=== PATIENT | male | born 2000 | race Caucasian/White ===

== ENCOUNTER 2022-06-27 17:25 | Emergency (ER) | payer OTHER, SELFPAY ==
[2022-06-27 17:30] VITALS: BP 129/87; PULSE 82; RESP 12; TEMP 36.7; O2SAT 98; BMI 18.5
[2022-06-27] MEDS: ACETAMINOPHEN SUSP 650 MG/20.3 ML UDC PO (17:39)
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
[2022-06-27] MEDS: KETOROLAC 30 MG/ML VIAL 15 MG IM (19:01)
[2022-06-27] MEDS: ONDANSETRON 4 MG ODT SL (19:02)
[2022-06-27 19:11] VITALS: BP 122/80; PULSE 80; RESP 14; O2SAT 98
== END 2022-06-27 19:12 | disposition home or self-care (01) ==
PROVIDERS: Emergency Provider Nurse Practitioner Critical Care Medicine; PCP Student in an Organized Health Care Education/Training Program; Referring Provider Student in an Organized Health Care Education/Training Program
DX: S06.0X0A Concussion without loss of consciousness, initial encounter (principal); W22.8XXA Striking against or struck by other objects, initial encounter; Y92.813 Airplane as the place of occurrence of the external cause
CPT/HCPCS: 70450; 72125; 96372; 99283; 99284; J1885

== ENCOUNTER 2022-12-16 22:06 | Emergency (ER) | payer OTHER, SELFPAY ==
[2022-12-16 22:11] VITALS: BP 158/89; PULSE 82; RESP 16; TEMP 36.7; O2SAT 99; BMI 18.4
[2022-12-16 22:39] LABS: Add Manual Diff / Slide Review NO; Basophils Absolute Auto 100 /uL (0-100); Basophils Percent Auto 0.7 % (0-2); Eosinophils Absolute Auto 200 /uL (0-450); Eosinophils Percent Auto 2.2 % (2-4); Hemoglobin 15.4 g/dL (13.5-17.5); Lymphocytes Absolute Auto 2600 /uL (1100-4500); Mean Corpuscular HGB Conc 35.1 % (30-36); Mean Corpuscular Hemoglobin 31.4 PG (26-34); Mean Corpuscular Volume 89.5 fL (80-100); Monocytes Absolute Auto 900 /uL (0-900); Neutrophils Absolute Auto 6100 /uL (1500-7000); Neutrophils Percent Auto 62.1 % (50-75); Platelet Count 265 X10^3/uL (150-400); Red Blood Cell Count 4.92 X10^6/uL (4.5-5.9); Red Cell Distribution Width 13.2 % (11.6-14.8); White Blood Cell Count 9.9 X10^3/uL (4.5-11.0)
[2022-12-16 22:47] LABS: Potassium 4.1 mmol/L (3.4-5.1)
[2022-12-16 22:48] LABS: Alanine Aminotransferase 24 IU/L (<50); Albumin 5.3 g/dL (3.5-5.0); Albumin Globulin Ratio 1.6 (1.0-2.8); Alkaline Phosphatase 104 U/L (38-126); Aspartate Aminotransferase 35 IU/L (17-59); BUN Creatinine Ratio 14.3 (6-22); Bilirubin Total 0.5 mg/dL (0.2-1.3); Blood Urea Nitrogen 12 mg/dL (9-20); Calcium 9.7 mg/dL (8.4-10.2); Carbon Dioxide 30 mmol/L (22-32); Chloride 99 mmol/L (98-107); Estimated Glomerular Filt Rate > 60 mL/min (>60); Globulin 3.3 g/dL (1.7-4.1); Glucose 101 mg/dL (70-100); Sodium 139 mmol/L (137-145); Total Protein 8.6 g/dL (6.3-8.2)
[2022-12-16 23:00] LABS: Troponin I < 0.012 ng/mL (0.01-0.034)
[2022-12-16 23:04] LABS: HEMOLYSIS 29 (0-50)
[2022-12-16 23:05] LABS: Procalcitonin < 0.03 ng/mL (<0.5)
[2022-12-16 23:12] LABS: COVID-19 CEPHEID 4-PLEX PCR Negative (Negative); Influenza A - CEPHEID Flu A NEGATIVE (NEGATIVE); Influenza B - CEPHEID Flu B NEGATIVE (NEGATIVE); Respiratory Syncytial Virus Negative (Negative)
[2022-12-17 00:35] VITALS: BP 123/66; PULSE 82; O2SAT 99
--- NOTE | 2022-12-17 00:48 | ED_ITS ---
HPI - Weakness General Chief complaint: Weakness Stated complaint: Bumps on neck 2wks, lightheaded, blurry vision Time Seen by Provider: 12/17/22 00:30 Source: patient and family Mode of arrival: Ambulatory History of Present Illness HPI Narrative: Patient is a 22-year-old male who presents with cervical lymphadenopathy. He reports it has been there for a couple of weeks he talked his PCM about it started him on amoxicillin. He is not had any fever chills sore throat ear pain headache neck pain or other infectious symptoms. He was put on amoxicillin for 1 week he thinks maybe it helped. Tonight he felt a lump on the right side of his neck again he got a little weak a little dizzy he did not pass out. He reports that he has been drinking lots of water he has no abdominal pain nausea vomiting painful frequent urination. He is not noted any other swelling or lymph nodes elsewhere in the body. He denies any weight loss Related Data Previous Rx's Medication Instructions Recorded acetaminophen 160 mg chewable 640 mg PO Q6H PRN fever or pain 06/27/22 tablet #60 tabs ibuprofen 100 mg chewable tablet 600 mg PO Q6-8H PRN fever or pain 06/27/22 #60 tabs ondansetron 4 mg disintegrating 4 mg PO Q8H PRN nausea and 06/27/22 tablet vomiting #10 tabs Allergies Allergy/AdvReac Type Severity Reaction Status Date / Time ketamine Allergy Intermediate Hives Verified 06/27/22 17:34 Review of Systems Review of Systems ROS Unobtainable: All systems reviewed & are unremarkable except as noted in HPI and below Patient History Social History Smoking Status: Never smoker Smoking Status: Never smoker alcohol intake frequency: other Substance Use Type: does not use Exam Initial Vital Signs Initial Vital Signs: Vital Signs Temperature 98.1 F 12/16/22 22:11 Pulse Rate 82 12/16/22 22:11 Respiratory Rate 16 12/16/22 22:11 Blood Pressure 158/89 H 12/16/22 22:11 Pulse Oximetry 99 12/16/22 22:11 Oxygen Delivery Method Room Air 12/16/22 22:11 GENERAL: Alert thin well-appearing 22-year-old male HEENT: Head atraumatic,EOMI, pupils reactive, face symmetric, moist mucous memb ranes EARS: Tympanic membranes visualized, no erythema or bulging, no hemotympanum PHARYNX: No erythema, no tonsillar exudate, right side lymph node very small 0.5 cm tender to touch non erythematous movable CARDIOVASCULAR: Regular rate and rhythm without murmurs, rubs or gallops. RESPIRATORY: Breath sounds equal bilaterally, no wheezes rales or rhonchi. ABDOMEN: Soft, nontender. Normoactive bowel sounds all 4 quadrants. No guarding or rebound. EXTREMITIES: Normal range of motion, no clubbing or edema. Neurovascularly intact NEUROLOGICAL: Alert and oriented x4.Normal gait and speech. SKIN: Warm, dry, no laceration, no petechiae, no rashes or lesions. Course Orders Ordered: ED Orders 12/16/22 22:23 Complete Blood Count AUTO DIFF Stat Comprehensive Metabolic Panel Stat Procalcitonin Stat Troponin I Stat 12/16/22 22:28 Covid-19 + FLU A/B + RSV - PCR Stat Vital Signs Vital signs: Vital Signs - 8 hr 12/16/22 22:11 12/17/22 00:35 Temperature 98.1 F Pulse Rate 82 82 Respiratory Rate 16 Blood Pressure 158/89 H 123/66 Pulse Oximetry 99 99 Oxygen Delivery Method Room Air MDM - Weakness Lab Data 12/16/22 22:23 12/16/22 22:23 Labs: Lab Results 12/16/22 12/16/22 12/16/22 Range/Units 22:23 22:23 22:28 WBC 9.9 (4.5-11.0) X10^3/uL RBC 4.92 (4.5-5.9) X10^6/uL Hgb 15.4 (13.5-17.5) g/dL Hct 44.0 (41-53) % MCV 89.5 (80-100) fL MCH 31.4 (26-34) PG MCHC 35.1 (30-36) % RDW 13.2 (11.6-14.8) % Plt Count 265 (150-400) X10^3/uL Neut % (Auto) 62.1 (50-75) % Lymph % (Auto) 26.0 (25-40) % Benzie % (Auto) 9.0 (3-14) % Eos % (Auto) 2.2 (2-4) % Baso % (Auto) 0.7 (0-2) % Neut # (Auto) 6100 (9031-4560) /uL Lymph # (Auto) 2600 (7193-6389) /uL Benzie # (Auto) 900 (0-900) /uL Eos # (Auto) 200 (0-450) /uL Baso # (Auto) 100 (0-100) /uL Sodium 139 (137-145) mmol/L Potassium 4.1 (3.4-5.1) mmol/L Chloride 99 (98-107) mmol/L Carbon Dioxide 30 (22-32) mmol/L BUN 12 (9-20) mg/dL Creatinine 0.84 (0.66-1.25) mg/dL Estimated GFR > 60 (>60) mL/min BUN/Creatinine Ratio 14.3 (6-22) Glucose 101 H (70-100) mg/dL Calcium 9.7 (8.4-10.2) mg/dL Total Bilirubin 0.5 (0.2-1.3) mg/dL AST 35 (17-59) IU/L ALT 24 (<50) IU/L Alkaline Phosphatase 104 (38-126) U/L Troponin I < 0.012 (0.01-0.034) ng/mL Total Protein 8.6 H (6.3-8.2) g/dL Albumin 5.3 H (3.5-5.0) g/dL Globulin 3.3 (1.7-4.1) g/dL Albumin/Globulin Ratio 1.6 (1.0-2.8) Procalcitonin < 0.03 (<0.5) ng/mL SARS-CoV-2 (PCR) Negative (Negative) Influenza A (RT-PCR) Flu a negative (NEGATIVE) Influenza B (RT-PCR) Flu b negative (NEGATIVE) RSV (PCR) Negative (Negative) ECG Data Interpretation: Normal sinus rhythm rate 87 PA interval 136 QRS [address] changes MDM Narrative Medical decision making narrative: Patient healthy 22-year-old male who presents with 1 lymph node on the right side of his neck it has been there for about 2 weeks he reports that it has not changed with amoxicillin. It is extremely small mildly tender to touch movable. Blood work is overall reassuring without leukocytosis or anemia no concern for leukemia or lymphoma. Probably infectious related he is not septic. Probably viral. However does not have symptoms now. Vitals are stable no evidence of dehydration he is tolerating fluids. Ambulatory in the ED without any difficulty. Discharge Plan Departure Patient Disposition: Home Clinical Impression: Lymphadenitis, acute Instructions: DI for Lymphadenopathy Activity Restrictions/Additional Instructions: *You have been diagnosed with lymphadenopathy *What to do: At this time he may try ice or heat to help with your neck. At this time I think it is left over from an infection. *Continue to take medications as directed Motrin 600 mg every 6 hours if needed for [id number] pain Tylenol 1000 mg every 6 hours if needed for yesm-eh-kylcgwyc pain *Follow up with your primary care provider in 2-3 days or call [phone] *Return to ER if you should have increasing pain fever weakness or any new, worsening or concerning symptoms Prescriptions: No Action acetaminophen 160 mg tablet,chewable 640 mg PO Q6H PRN (Reason: fever or pain) Qty: 60 0RF ondansetron 4 mg tablet,disintegrating 4 mg PO Q8H PRN (Reason: nausea and vomiting) Qty: 10 0RF ibuprofen 100 mg tablet,chewable 600 mg PO Q6-8H PRN (Reason: fever or pain) Qty: 60 1RF Referrals: Jim Coon DO [Primary Care Provider] - Stand Alone Forms: Patient Portal/API
== END 2022-12-17 01:13 | disposition home or self-care (01) ==
PROVIDERS: Emergency Provider Emergency Medicine; PCP Student in an Organized Health Care Education/Training Program
DX: L04.9 Acute lymphadenitis, unspecified (principal)
CPT/HCPCS: 0241U; 36415; 80053; 84145; 84484; 85025; 93005; 93010; 99283; 99284

== ENCOUNTER 2024-01-02 19:09 | Emergency (ER) | payer OTHER, SELFPAY ==
[2024-01-02 19:18] VITALS: BP 119/79; PULSE 73; RESP 18; TEMP 36.6; O2SAT 99; BMI 18.2
--- NOTE | 2024-01-02 19:41 | ED.SKABFB ---
HPI - Skin/Abscess/Foreign Bdy General Chief complaint: Skin/Abscess/Foreign Body Stated complaint: fishing hook in chin Time Seen by Provider: 01/02/24 19:39 Source: patient Mode of arrival: Ambulatory Limitations: no limitations History of Present Illness HPI narrative: Patient healthy 23-year-old male who presents today with fishhook in chin. Reports that is a new he has cast it a couple of times into the water but has not caught a fish. Related Data Previous Rx's Medication Instructions Recorded acetaminophen 160 mg chewable 640 mg (4 x 160 mg) PO Q6H PRN 06/27/22 tablet fever or pain #60 tabs ibuprofen 100 mg chewable tablet 600 mg (6 x 100 mg) PO Q6-8H PRN 06/27/22 fever or pain #60 tabs ondansetron 4 mg disintegrating 4 mg PO Q8H PRN nausea and 06/27/22 tablet vomiting #10 tabs Allergies Allergy/AdvReac Type Severity Reaction Status Date / Time ketamine Allergy Intermediate Hives Verified 01/02/24 19:23 Patient History Social History Smoking Status: Never smoker Smoking Status: Never smoker alcohol intake frequency: other Substance Use Type: does not use Exam Initial Vital Signs Initial Vital Signs: Vital Signs Temperature 97.8 F 01/02/24 19:18 Pulse Rate 73 01/02/24 19:18 Respiratory Rate 18 01/02/24 19:18 Blood Pressure 119/79 01/02/24 19:18 Pulse Oximetry 99 01/02/24 19:18 Oxygen Delivery Method Room Air 01/02/24 19:18 GENERAL: Well-appearing, well-nourished and in no acute distress. CARDIOVASCULAR: peripheral pulses in tact, cap refill <2 sec RESPIRATORY: No respiratory distress, speaks in full sentences without difficulty EXTREMITIES: Normal range of motion, no clubbing or edema. Neurovascularly intact NEUROLOGICAL: Cranial nerves II through XII grossly intact. Normal gait and speech. SKIN: [place] in chin on left side Course Orders Ordered: Discontinued Medications Diphtheria/Tetanus/Acell Pertussis (Tet,Diph,Pertuss(Acell),Vac/Pf 0.5 Ml Syringe) 0.5 ml IM .ONCE ONE Stop: 01/02/24 20:04 Last Admin: 01/02/24 20:10 Dose: 0.5 ml Documented By: CHALINO Vital Signs Vital signs: Vital Signs - 8 hr 01/02/24 19:18 01/02/24 20:15 Temperature 97.8 F Pulse Rate 73 96 H Respiratory Rate 18 16 Blood Pressure 119/79 114/73 Pulse Oximetry 99 98 Oxygen Delivery Method Room Air Room Air MDM - Skin/Abscess/Foreign Bdy MDM Narrative Medical decision making narrative: Well-appearing 23-year-old male fish hook is push through the skin artemio is clamped and then fishhook is easily removed. Area of the skin is anesthetized with lidocaine. Patient tolerated procedure well no complications. Tetanus given Supportive care Discharge Plan Departure Patient Disposition: Home Clinical Impression: Foreign body in skin of face Instructions: DI for Removal of Foreign Body From Skin Activity Restrictions/Additional Instructions: *You have been diagnosed with fishhook removal *What to do: Keep area clean and dry soap and water monitor for infection *Continue to take medications as directed Antibiotic ointment 1-2 times daily Tylenol Motrin as needed for pain *Follow up with your primary care provider in 2-3 days or call [phone] *Return to ER if you should have increased redness swelling fever or any new, worsening or concerning symptoms Prescriptions: No Action acetaminophen 160 mg tablet,chewable 640 mg PO Q6H PRN (Reason: fever or pain) Qty: 60 0RF ondansetron 4 mg tablet,disintegrating 4 mg PO Q8H PRN (Reason: nausea and vomiting) Qty: 10 0RF ibuprofen 100 mg tablet,chewable 600 mg PO Q6-8H PRN (Reason: fever or pain) Qty: 60 1RF Referrals: Jim Coon DO [Primary Care Provider] - Stand Alone Forms: Patient Portal/API
[2024-01-02] MEDS: TET,DIPH,PERTUSS(ACELL),VAC/PF 0.5 ML SYRINGE IM (20:10)
--- NOTE | 2024-01-02 20:14 | PC.NURSE ---
Patient states that he had his tetanus booster before and did not have any reaction to it. He tolerated the vaccine well and was given information on tetanus.
[2024-01-02 20:15] VITALS: BP 114/73; PULSE 96; RESP 16; O2SAT 98
== END 2024-01-02 20:17 | disposition home or self-care (01) ==
PROVIDERS: Emergency Provider Emergency Medicine; PCP Student in an Organized Health Care Education/Training Program
DX: S00.85XA Superficial foreign body of other part of head, initial encounter (principal); Z23 Encounter for immunization
CPT/HCPCS: 90471; 99283; 90715